=== PATIENT | female | born 2000 | race Caucasian/White ===

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

== ENCOUNTER 2022-03-24 18:58 | Emergency (ER) | payer OTHER ==
[~2022-03-24] VITALS: Ht 175.3 cm; Wt 100.0 kg
[2022-03-24 19:03] VITALS: BP 107/64
[2022-03-24] MEDS ORDERED: PERTUSS(ACELL),DIPH,TET VAC/PF 0.5 ML SYRINGE IM. ONE (20:45)
[2022-03-24] MEDS ORDERED: IBUPROFEN 600 MG TABLET PO ONE (20:45)
== END 2022-03-24 22:15 | disposition home or self-care (01) ==
LOC: EMS 19:00
DX: M79.671 Pain in right foot (principal); F12.90 Cannabis use, unspecified, uncomplicated; W56.81XA Bitten by other nonvenomous marine animals, initial encounter; Y93.89 Activity, other specified; Y92.89 Other specified places as the place of occurrence of the external cause; Y99.8 Other external cause status
CPT/HCPCS: 90471; 90715; 99283

== ENCOUNTER 2022-04-02 20:59 | Emergency (ER) | payer OTHER ==
[~2022-04-02] VITALS: Ht 175.3 cm; Wt 102.3 kg
[2022-04-02 21:30] VITALS: BP 114/72
[2022-04-02] MEDS ORDERED: CEPH-558 PO (21:39)
== END 2022-04-02 21:57 | disposition home or self-care (01) ==
LOC: EMS 21:05
DX: S91.331A Puncture wound without foreign body, right foot, initial encounter (principal); L03.115 Cellulitis of right lower limb; W45.8XXA Other foreign body or object entering through skin, initial encounter; Y93.89 Activity, other specified; Y92.89 Other specified places as the place of occurrence of the external cause; Y99.8 Other external cause status
CPT/HCPCS: 99283

== ENCOUNTER 2022-05-12 22:47 | Emergency (ER) | payer OTHER ==
[~2022-05-12] VITALS: Ht 175.3 cm; Wt 100.0 kg
[~2022-05-12 22:47] MED LIST: CEPH-558 PO
[2022-05-12 23:52] LABS: APPEARANCE,URINE CLEAR (CLEAR); BILIRUBIN,URINE NEGATIVE (NEGATIVE); GLUCOSE, URINE (UA) NEGATIVE (NEGATIVE); KETONES,URINE NEGATIVE (NEGATIVE); LEUKOCYTE ESTERASE ,URINE NEGATIVE (NEGATIVE); NITRATE,URINE NEGATIVE (NEGATIVE); OCCULT BLOOD,URINE NEGATIVE (NEGATIVE); PH,URINE 6.5 (5.0-8.0); PROTEIN,URINE NEGATIVE (NEGATIVE); SPECIFIC GRAVITIY, URINE 1.019 (1.003-1.030); UROBILINOGEN,URINE <=1.0 mg/dL (<=1.0)
[2022-05-13] MEDS ORDERED: DOXYCYCLINE HYCLATE 100 MG TABLET PO ONE (00:30)
[2022-05-13] MEDS ORDERED: CefTRIAXone SODIUM 1 GM/VIAL IM ONE (00:30)
[2022-05-13] MEDS ORDERED: LIDOCAINE/PF 1% 2 ML VIAL IM ONE (00:30)
[2022-05-13] MEDS ORDERED: ValACYclovir HCL 500 MG TABLET PO ONE (00:30)
[2022-05-13] MEDS ORDERED: VALA500T42 PO (00:33)
[2022-05-13] MEDS ORDERED: DOXY-354 PO (00:33)
[2022-05-13 01:03] VITALS: BP 121/71
== END 2022-05-13 01:16 | disposition home or self-care (01) ==
LOC: EMS 22:47
DX: A60.00 Herpesviral infection of urogenital system, unspecified (principal); A64 Unspecified sexually transmitted disease; F12.90 Cannabis use, unspecified, uncomplicated
CPT/HCPCS: 99283; 81003; 84703; 87210; 87491; 87591; 96372; J0696; J3490